=== PATIENT | male | born 1955 | race African-American/Black ===

== ENCOUNTER 2023-12-27 21:46 | Emergency (ER) | payer MEDICARE, OTHER ==
[~2023-12-27] VITALS: Ht 175.3 cm; Wt 95.0 kg
[~2023-12-27 21:46] MED LIST: DOCU-150 MT; FAMO-134 MT; HYDR-4001 PO
[2023-12-27 22:31] VITALS: BP 155/97; PULSE 93; RESP 18; TEMP 98.4; O2SAT 97
[2023-12-28] MEDS ORDERED: ACET-2708 MT (00:17)
[2023-12-28] MEDS ORDERED: POLY17PO3 MT (00:17)
[2023-12-28] MEDS: POLYETHYLENE GLYCOL 3350 (17GM) 1 DOSE PACK PO ONE (01:10)
[2023-12-28] MEDS: BISACODYL 5MG TABLET PO PRN (01:10)
== END 2023-12-28 01:25 | disposition home or self-care (01) ==
LOC: ER 21:46
DX: K91.840 Postprocedural hemorrhage of a digestive system organ or structure following a digestive system procedure (principal); K59.00 Constipation, unspecified; I10 Essential (primary) hypertension; J45.909 Unspecified asthma, uncomplicated; Z98.890 Other specified postprocedural states
CPT/HCPCS: 99283; Z7610

== ENCOUNTER 2024-01-12 11:49 | Emergency (ER) | payer MEDICARE, OTHER ==
[~2024-01-12] VITALS: Ht 182.9 cm; Wt 81.0 kg
[~2024-01-12 11:49] MED LIST changes: +ACET-2708 MT; +POLY17PO3 MT
[2024-01-12 11:53] VITALS: O2SAT 99
[2024-01-12 12:20] LABS: BASOPHILS % 1.4 % (0.0-2.0); EOSINOPHILS % 1.6 % (0.0-5.0); HEMATOCRIT. 29.9 % (42.0-52.0); HEMOGLOBIN. 9.9 g/dL (14.0-18.0); LYMPHOCYTES % 25.3 % (20.0-50.0); MEAN CORPUSCULAR HEMOGLOBIN 29.3 pg (28.0-32.0); MEAN CORPUSCULAR VOLUME 88.7 fL (80.0-94.0); MEAN PLATELET VOLUME 7.8 fl (7.4-10.4); MONOCYTES % 7.4 % (2.0-8.0); NEUTROPHILS % 64.3 % (40.0-76.0); PLATELET 302 x1000/uL (130-400); RED BLOOD CELL COUNT 3.37 mill/uL (4.7-6.1); RED CELL DISTRIBUTION WIDTH 18.5 % (11.6-14.6); WHITE BLOOD COUNT 4.9 x1000/uL (4.5-11.0)
[2024-01-12 12:58] LABS: ALANINE AMINOTRANSFERASE 13 IU/L (10-49); ALBUMIN 3.9 g/dL (3.2-4.8); ASPARTATE AMINOTRANSFERASE 20 IU/L (<34); BILIRUBIN TOTAL 0.7 mg/dL (0.1-1.0); CALCIUM 8.7 mg/dL (8.7-10.4); CARBON DIOXIDE 26 mEq/L (21-32); CHLORIDE 108 mEq/L (98-107); CREATININE 1.3 mg/dL (0.6-1.3); GLUCOSE 89 mg/dL (70-105); POTASSIUM 4.5 mEq/L (3.5-5.1); PROTEIN TOTAL 8.1 g/dL (6.0-8.3); SODIUM 139 mEq/L (136-145); TROPONIN I HIGH SENSITIVITY 18 ng/L (3.0-53); UREA NITROGEN BLOOD 13 mg/dL (9-23)
[2024-01-12 13:37] LABS: D-DIMER 1.2 mg/L FEU (<0.50); PARTIAL THROMBOPLASTIN TIME 27.7 sec (23.4-31.0)
[2024-01-12] MEDS ORDERED: AMLODIPINE 2.5MG TABLET PO SCH (13:45)
[2024-01-12] MEDS: FUROSEMIDE 40MG/4ML VIAL IV ONE (13:58)
[2024-01-12] MEDS: ASPIRIN 81MG TABLET PO ONE (13:58)
[2024-01-12 21:32] VITALS: BP 139/77; PULSE 79; RESP 18; TEMP 98.4
[2024-01-12] MEDS ORDERED: IOHEXOL-350 100 ML BOTTLE ONE (23:37)
[2024-01-13] MEDS ORDERED: FUROSEMIDE 40MG/4ML VIAL IVP SCH (09:00)
[2024-01-13] MEDS ORDERED: AMLODIPINE 5MG TABLET PO SCH (09:00)
== END 2024-01-12 22:10 | disposition short-term general hospital (02) ==
LOC: ER 11:49
DX: I11.0 Hypertensive heart disease with heart failure (principal); I50.9 Heart failure, unspecified; R60.0 Localized edema; J45.909 Unspecified asthma, uncomplicated; Z98.890 Other specified postprocedural states
CPT/HCPCS: 80053; 83880; 85025; 85379; 85610; 85730; 84484; 36415; 71045; 71275; 93970; 93005; 96374; 99285; Q9967; Z7610 ×3; J1940